=== PATIENT | male | born 1985 | race Caucasian/White ===

== ENCOUNTER 2022-12-13 15:19 | Emergency (ER) | payer OTHER, SELFPAY ==
--- NOTE | 2022-12-13 15:25 | ED_ITS ---
HPI - General Adult General Chief complaint: Wound/Laceration Stated complaint: Lip lac at work Time Seen by Provider: 12/13/22 18:31 Source: patient Mode of arrival: ambulatory Limitations: no limitations History of Present Illness HPI narrative: Patient 37-year-old male presents emergency department for evaluation of a laceration to the left upper lip sustained after being struck in the face today with a piece of plastic from a car while at work. Reports his tetanus vaccine is up-to-date within the last 5 years. No active bleeding. Denies use of anticoagulants or coagulation disorders. Denies affected dentition. There was no loss of consciousness. No headache. Related Data Allergies Allergy/AdvReac Type Severity Reaction Status Date / Time No Known Allergies Allergy Verified 12/13/22 15:25 Review of Systems Review of Systems: Yes all other systems are reviewed and are negative PMFSH Past Medical History Attestation statement: The following information was validated with the patient. Source: old records reviewed Social History Social History Advance Directives: No Advance Directives Information Provided: Yes Physical Exam ED Vital Signs: Vital Signs - 24 hr 12/13/22 15:26 12/13/22 20:22 Temperature 97.7 F Pulse Rate 83 83 Respiratory Rate 18 18 Blood Pressure 130/77 123/72 Pulse Oximetry 97 99 Oxygen Delivery Method Room Air Room Air BMI result Body Mass Index 26.6 Appearance: Alert.?Oriented to person, place and time. No acute distress.?Normal affect. Eyes: Pupils equal, round and reactive to light.? ENT: Pharynx normal.?? Neck: Normal inspection.? Neck supple.?? CVS: Heart sounds normal. Normal heart rate and rhythm.? Pulses normal.?? Respiratory: No respiratory distress.? Lung sounds clear to auscultation bilaterally?? Abdomen: Soft and non-tender.?? Skin: Skin warm and dry.? Normal skin color.? Left upper lip with 1 cm laceration, bleeding controlled, does not cross the vermilion border, does not extend fully down through the oral mucosa Neuro: Moves all extremities spontaneously. Sensation intact bilaterally. CN II- XII intact. No focal neuro deficits. Ambulates with normal steady gait. Course Course Course Narrative: 37 year old male presenting with a lip laceration after being hit in the face with a plastic piece of a car at 2:25 today. Patient states he is up to date with his tetanus vaccine. Plan: [facility] Medications Administered Discontinued Medications Generic Name Dose Route Start Last Admin Trade Name Kailyn PRN Reason Stop Dose Admin Lidocaine HCl 5 ml 12/13/22 19:15 12/13/22 19:18 Lidocaine Hcl 1 % Mpf 5 Ml Vial SUBCUT 12/13/22 19:16 5 ml ONCE ONE Administration Procedures Laceration Laceration 1: Site: lip Side (If applicable): left Size (cm): 1 Description: linear Depth: simple, single layer Local Anesthetic: lidocaine 1% Amount of anesthesia used (mL): 1 Pre-repair: wound explored and irrigated extensively Skin layer closed with: other (prolene) Size (cm): 6-0 Number of sutures: 1 Technique: simple, interrupted Medical Decision Making Medical Decision Making [facility] Narrative: Patient is a 37-year-old male presents emergency department for evaluation of a with laceration. No active bleeding, dentition was normal. Laceration is superficial, cleansed with normal saline and Betadine, laceration repair as per procedure note, 1 suture was placed, advised will need removal in 5 days. Discussed worrisome signs and symptoms including signs of infection of warrant re-evaluation. Verbalized understanding. At this time stable for discharge. Differential Diagnosis Differential Diagnoses: The differential diagnosis associated with the presentation includes Prescription Management I considered prescription management with: Pain Medication (Acetaminophen/ibuprofen) Discharge Plan Discharge Clinical Impression: Laceration Patient Disposition: Home, Self-Care Additional Instructions: The single suture will need to be removed in 5 days. You may follow-up with [facility]/PCP/return to the ER for re-evaluation. If you develop increasing pain, redness, swelling, pus-like discharge, fevers, chills then you should have this re-evaluated. Referrals: [facility] [Provider Group]
[2022-12-13 15:26] VITALS: BP 130/77; PULSE 83; RESP 18; TEMP 36.5; O2SAT 97; BMI 26.6
[2022-12-13] MEDS: Lidocaine HCl 1 % MPF 5 ML VIAL SUBCUT (19:18)
[2022-12-13 20:22] VITALS: BP 123/72; PULSE 83; RESP 18; O2SAT 99
== END 2022-12-13 22:15 | disposition home or self-care (01) ==
PROVIDERS: Emergency Provider Emergency Medicine; PCP Internal Medicine
DX: S01.511A Laceration without foreign body of lip, initial encounter (principal); W26.9XXA Contact with unspecified sharp object(s), initial encounter; Y93.9 Activity, unspecified; Y92.9 Unspecified place or not applicable; Y99.0 Civilian activity done for income or pay
CPT/HCPCS: 12011; 99283; 99284

== ENCOUNTER → 2022-12-19 12:57 | Outpatient (BNVA) | payer OTHER, SELFPAY | PROVIDERS: PCP Internal Medicine; Visit Provider Internal Medicine | DX: S01.511A Laceration without foreign body of lip, initial encounter (principal); W22.8XXA Striking against or struck by other objects, initial encounter | CPT/HCPCS: 99202; 99212 ==

== ENCOUNTER → 2023-04-17 11:38 | Outpatient (BNVA) | payer OTHER, SELFPAY | PROVIDERS: PCP Internal Medicine; Visit Provider Physician Assistant Medical | DX: S30.1XXA Contusion of abdominal wall, initial encounter (principal); W22.8XXA Striking against or struck by other objects, initial encounter | CPT/HCPCS: 99203 ==

== ENCOUNTER → 2023-04-19 13:01 | Outpatient (BNVA) | payer OTHER, SELFPAY | PROVIDERS: PCP Internal Medicine; Visit Provider Physician Assistant | DX: S30.1XXA Contusion of abdominal wall, initial encounter (principal); W22.8XXA Striking against or struck by other objects, initial encounter | CPT/HCPCS: 99213 ==